=== PATIENT | male | born 1985 | race Hispanic/Latino ===

== ENCOUNTER 2017-06-07 06:59 | Day surgery (SDC) | payer OTHER ==
[~2017-06-07] VITALS: Ht 180.3 cm; Wt 96.6 kg
[~2017-06-07 06:59] MED LIST: ASPI-555 PO; SODIUM CHLORIDE 0.9% 1000ML 1,000 ML IV ONE
[2017-06-07 07:33] VITALS: BP 139/60
[2017-06-07] MEDS ORDERED: PROPOFOL 10 MG/ML 20ML VIAL IV ONE ×4 (09:14→09:35)
[2017-06-07 09:55] VITALS: BP 101/43
[2017-06-07] MEDS ORDERED: IPRATROPIUM/ALBUTEROL SULFATE 3 ML SOLUTION IH ONE (10:09)
== END 2017-06-07 10:50 | disposition home or self-care (01) ==
LOC: DAH 06:59
PROVIDERS: ATTEND Internal Medicine Gastroenterology
DX: K92.1 Melena (principal); K21.9 Gastro-esophageal reflux disease without esophagitis; Z15.09 Genetic susceptibility to other malignant neoplasm; Z79.899 Other long term (current) drug therapy
CPT/HCPCS: 43235; 45378; 94640; A4606; J2704 ×4; J7030 ×2